=== PATIENT | female | born 1990 | race Hispanic/Latino ===

== ENCOUNTER 2017-09-11 10:13 | Emergency (ER) | payer SELFPAY ==
[~2017-09-11] VITALS: Ht 162.6 cm; Wt 56.7 kg
[2017-09-11 10:51] LABS: BASOPHILS % 0.3 % (0.0-1.0); EOSINOPHILS # (AUTO) 0.1 (0.0-0.4); EOSINOPHILS % 0.9 % (0.0-6.0); HEMATOCRIT 40.7 % (34.2-44.1); HEMOGLOBIN 13.8 g/dL (12.0-16.0); LYMPHOCYTES # (AUTO) 2.3 (1.0-3.2); LYMPHOCYTES % 23.2 % (18.0-39.1); MEAN CORPUSCULAR HEMOGLOBIN 27.9 pg (28-32); MEAN CORPUSCULAR HGB CONC 33.9 g/dL (31-35); MEAN CORPUSCULAR VOLUME 82.2 fL (81-99); MONOCYTES # (AUTO) 0.6 (0.2-0.8); MONOCYTES % 6.5 % (4.4-11.3); NEUTROPHILS # (AUTO) 6.8 (2.1-6.9); NEUTROPHILS % 68.8 % (38.7-80.0); PLATELET COUNT 209 x10e3/uL (140-360); RED BLOOD COUNT 4.95 x10e6/uL (3.6-5.1); RED CELL DISTRIBUTION WIDTH 13.9 % (11.7-14.4)
[2017-09-11 11:02] LABS: PROTHROMBIN TIME 12.4 seconds (11.9-14.5)
[2017-09-11 11:03] LABS: PARTIAL THROMBOPLASTIN TIME 30.3 seconds (23.8-35.5)
[2017-09-11 11:07] LABS: ANION GAP 13.7 mmol/L (8-16); BLOOD UREA NITROGEN 8 mg/dL (7-26); BUN/CREATININE RATIO 10 (6-25); CARBON DIOXIDE 25 mmol/L (22-29); CHLORIDE 102 mmol/L (98-107); CREATININE, SERUM 0.77 mg/dL (0.57-1.11); EST GLOMERULAR FILTRATION RATE > 60 ML/MIN (60-); GLUCOSE 99 mg/dL (74-118); POTASSIUM 3.7 mmol/L (3.5-5.1); SODIUM 137 mmol/L (136-145)
[2017-09-11 11:14] LABS: HCG,QUANTITATIVE 20.87 mIU/mL (0-10)
--- NOTE | 2017-09-11 12:29 | Diagnostic Imaging Report ---
EXAM: First Trimester Obstetric Pelvic Ultrasound INDICATION: \S\pos preg test, vaginal bleed and cramping, confirm IUP \S\N COMPARISON: None TECHNIQUE: Grayscale transverse and sagittal transabdominal and transvaginal images were obtained of the pelvis. Transvaginal imaging was medically necessary to better evaluate the endometrium, adnexa, and fetus. CLINICAL HISTORY: 27 year old A1 Last menstrual period: 08/04/2017 Clinical gestational age: 5w3d FINDINGS: Uterus: Orientation: Normal Size: 8.8 x 4.3 x 5.3 cm, enlarged Mass: None Cervix: Normal No intrauterine gestational sac visualized. Endometrial stripe measures 0.7 cm. Right ovary Size: 2.2 x 1.6 x 2.1 cm Mass/Cyst: 1.2 x 1 cm corpus luteum. Left ovary Size: 2.6 x 1.7 x 2.4 cm Mass/Cyst: None Cul-de-sac: No free fluid IMPRESSION: No evidence of intrauterine . Differentials include early , ectopic and miscarriage. Recommend correlation with serial beta hCG and short-term follow-up ultrasound. Signed by: Dr. Tenzin Puga MD on 09/11/2017 12:26 PM
[2017-09-11] MEDS ORDERED: IBUPROFEN 600 MG TAB PO STA (12:36)
[2017-09-11 13:06] VITALS: BP 115/79
== END 2017-09-11 12:50 | disposition home or self-care (01) ==
LOC: ER 10:13
DX: Z32.01 Encounter for pregnancy test, result positive (principal); O20.9 Hemorrhage in early pregnancy, unspecified
CPT/HCPCS: 36415; 76817; 80048; 84702; 85025; 85610; 85730; 86850; 86900; 99284